=== PATIENT | male | born 1995 | race Caucasian/White ===

== ENCOUNTER 2016-10-08 12:28 | Day surgery (SDC) | payer BC ==
[~2016-10-08 12:28] MED LIST: ACETAMINOPHEN 1,000 MG/100 ML BTL IV ONE
[2016-10-08] MEDS ORDERED: SEVOFLURANE 250 ML INH ONE (14:00)
[2016-10-08] MEDS ORDERED: MIDAZOLAM HCL 2MG/2ML VIAL IV ONE (14:00)
[2016-10-08] MEDS ORDERED: FENTANYL PF 100MCG/2ML VIAL IV ONE (14:00)
[2016-10-08] MEDS ORDERED: HYDROCODONE/APAP 7.5/325 15ML ELIXIR PO ONE (14:00)
[2016-10-08] MEDS ORDERED: PROPOFOL 10 MG/ML VIAL IV ONE (14:00)
[2016-10-08] MEDS ORDERED: *PACU ONLY* KETAMINE HCL 10 MG/ML (20ML) VIAL IV ONE (14:00)
[2016-10-08] MEDS ORDERED: BUPIVACAINE 0.25% W/EPI MPF 30ML VIAL IVP ONE (14:00)
[2016-10-08] MEDS ORDERED: KETOROLAC 30 MG/ML VIAL IVP ONE (14:00)
--- NOTE | 2016-10-09 12:57 | Operative Note ---
DATE OF SURGERY: 10/08/2016 Surgeon: Deng Montoya DO PREOPERATIVE DIAGNOSES: 1. Bucket-handle tear of lateral meniscus of the right knee. 2. Torn medial meniscus, right knee. 3. Synovitis, right knee. OPERATION: 1. Arthroscopic partial medial and lateral meniscectomy, right knee. 2. Arthroscopic partial synovectomy, right knee. DESCRIPTION OF PROCEDURE: This 21-year-old male was taken to the operating room, placed in the supine position on the operating room table where general anesthesia was induced. The right lower extremity was elevated. It was exsanguinated and the tourniquet inflated to 300 mmHg. Arthroscopic knee hernandez applied. Right knee prepped with Hibiclens and draped in the usual sterile fashion. An inferolateral portal was established for the 4 mm arthroscope. Initial evaluation of the joint demonstrated normal appearance of the suprapatellar pouch. 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 This was probed through an inferomedial portal. Instability of the articular cartilage was present there, and chondroplasty was performed in this area to stabilize the articular cartilage. The intracondylar notch was examined and found to be normal. There was extensive synovitis in the fat pad, and this was debrided. The medial compartment was entered and the articular cartilage appeared to be normal. We did probe the medial meniscus and found a tear at the posterior horn with a degenerative type tear being present near the meniscal synovial junction. We used the basket forceps and rotating shaver to resect this over to the root of the meniscus. The remainder of the medial meniscus appeared normal. We then directed our attention to the intracondylar notch, and the ACL was seen to be normal. The lateral compartment was entered, and a displaced bucket-handle tear of the lateral meniscus was present. We then reduced the tear and detached it posteriorly and then more laterally and removed the fragment. The remainder was cleaned up with the rotating shaver and basket forceps. This tear did enter the popliteal hiatus and complete maceration of the meniscus was present. The joint was then copiously irrigated and suctioned. We probed the lateral meniscus then and found the remainder to be stable. The patient's wound was irrigated, suctioned, and the instruments were removed. The portals infiltrated with 0.25% Marcaine with epinephrine. Sterile dressings applied. Tourniquet and knee hernandez released. The patient taken to the recovery room in satisfactory condition. GROSS PATHOLOGY: This patient demonstrated a tear of the posterior horn of the medial and lateral meniscus and synovitis. The patient also had grade 2 chondromalacia of the patella, which was shaved with a rotating shaver, and partial synovectomy was performed. CC: Irma ESPINOZA
== END 2016-10-08 15:50 | disposition home or self-care (01) ==
LOC: SUR 12:28
PROVIDERS: ATTEND Orthopaedic Surgery
DX: S83.251A Bucket-handle tear of lateral meniscus, current injury, right knee, initial encounter (principal); S83.241A Other tear of medial meniscus, current injury, right knee, initial encounter; M65.861 Other synovitis and tenosynovitis, right lower leg
CPT/HCPCS: J1885

== ENCOUNTER 2018-04-09 07:01 | Day surgery (SDC) | payer BC ==
[2018-04-09] MEDS ORDERED: PROPOFOL 10 MG/ML VIAL IV ONE (07:02)
[2018-04-09] MEDS ORDERED: FENTANYL PF 100MCG/2ML VIAL IV ONE (07:02)
[2018-04-09] MEDS ORDERED: LIDOCAINE 2% MDV (20MG/ML) 20ML VIAL IV ONE (07:02)
--- NOTE | 2018-04-10 10:10 | Operative Note ---
DATE OF SURGERY: 04/09/18 OPERATION: ESOPHAGOGASTRODUODENOSCOPY with biopsy. PREOPERATIVE DIAGNOSIS: Chronic heartburn. POSTOPERATIVE DIAGNOSIS: Suspected eosinophilic esophagitis. PROCEDURE: After informed consent was obtained from the patient, he was placed in the left lateral decubitus position in the endoscopy suite, sedated and monitored by the department of anesthesia. Once sedated, a well-lubricated [id number] gastroscope was placed in the posterior oropharynx and under direct visualization passed to the proximal esophagus. The endoscope was advanced through the proximal, mid, and distal esophagus. The GE junction was unremarkable. The gastric body, antrum, pylorus, duodenal bulb, and sweep were unremarkable. J-turn views of the proximal stomach were unrevealing. The endoscope was straightened and retracted throughout the course of the esophagus which demonstrated longitudinal furrows of mild intensity and severity. There were perhaps some mild subtle rings. Random biopsies were obtained throughout the mid and distal esophagus. No excessive bleeding was noted. The endoscope was removed from the patient with no new findings noted. RECOMMENDATIONS: The patient should continue on his Dexilant. We will await the results of tissue histology. As always, thank you for allowing me to participate in the healthcare of your patients. CC: Irma ESPINOZA
== END 2018-04-09 08:30 | disposition home or self-care (01) ==
LOC: HOP 07:01
PROVIDERS: ATTEND Internal Medicine Gastroenterology
DX: R12 Heartburn (principal); K20.0 Eosinophilic esophagitis; K21.9 Gastro-esophageal reflux disease without esophagitis
CPT/HCPCS: 43239; 00731; J3010

== ENCOUNTER 2018-06-11 08:07 | Day surgery (SDC) | payer BC ==
[2018-06-11] MEDS ORDERED: FENTANYL PF 100MCG/2ML VIAL IV ONE (08:08)
[2018-06-11] MEDS ORDERED: PROPOFOL 10 MG/ML VIAL IV ONE (08:08)
[2018-06-11] MEDS ORDERED: LIDOCAINE 2% MDV (20MG/ML) 20ML VIAL IV ONE (08:08)
--- NOTE | 2018-06-12 07:21 | Operative Note ---
DATE OF SURGERY: 06/11/2018 OPERATION: ESOPHAGOGASTRODUODENOSCOPY with biopsy. PREOPERATIVE DIAGNOSIS: History of EOE, rule out resolution. POSTOPERATIVE DIAGNOSIS: Suspected persistent EOE. PROCEDURE: After informed consent was obtained from the patient, the patient was placed in the left lateral decubitus position in the endoscopy suite, sedated and monitored by the department of anesthesia. A well-lubricated [id number] gastroscope was placed in the posterior oropharynx under direct visualization and passed to the proximal esophagus. The endoscope was advanced through the proximal, mid, and distal esophagus. No dominant strictures were seen. There were some longitudinal furrows and some subtle ring changes in the mid and distal esophagus. The gastric body, antrum, pylorus, duodenal bulb and sweep were all unremarkable. J-turn views of the proximal stomach were unrevealing. The endoscope was straightened. Random esophageal biopsies were obtained. No excessive bleeding or rents were noted. The endoscope was removed from the patient with no new findings noted. RECOMMENDATIONS: We will await the results of tissue histology before further recommendations are made. In particular, would like to see if there is any reduction in eosinophils in the esophageal biopsies. If not, other topical therapy may be necessary. In addition, perhaps even an allergy evaluation would be helpful. As always, thank you for allowing me to participate in the healthcare of your patients. CC: Irma ESPINOZA
== END 2018-06-11 09:16 | disposition home or self-care (01) ==
LOC: HOP 08:07
PROVIDERS: ATTEND Internal Medicine Gastroenterology
DX: Z87.19 Personal history of other diseases of the digestive system (principal); K20.0 Eosinophilic esophagitis; K21.9 Gastro-esophageal reflux disease without esophagitis
CPT/HCPCS: 43239; 00731; J3010